=== PATIENT | male | born 2000 | race Caucasian/White ===

== ENCOUNTER 2021-06-15 11:13 | Emergency (ER) | payer OTHER ==
[~2021-06-15] VITALS: Ht 185.4 cm; Wt 95.5 kg
--- NOTE | 2021-06-15 12:04 | REP ---
INDICATION: CP. COMPARISON: None. TECHNIQUE: Upright PA and lateral chest images were obtained. FINDINGS: The lungs are clear. The heart borders, mediastinum and pulmonary vascular pattern are normal. The upper abdominal bowel gas pattern is normal. There are no bony abnormalities of the chest. IMPRESSION: No evidence of acute cardiopulmonary pathology. <Electronically signed by Mina Dickey > 06/15/21 1200
[2021-06-15 12:46] LABS: BASO # 0.1 10^3/uL (0.0-0.2); BASO % 1.1 % (0.0-1.0); EOS # 0.3 10^3/uL (0.0-0.5); EOS % 5.5 % (0.0-3.0); HEMATOCRIT 45.7 % (42.0-52.0); HEMOGLOBIN 15.8 g/dl (13.5-17.5); LYMPH # 1.5 10^3/uL (1.5-5.0); LYMPH % 26.6 % (24.0-44.0); MEAN CORPUSCULAR HEMOGLOBIN 29.8 pg (27.0-33.0); MEAN CORPUSCULAR HGB CONC 34.6 g/dl (32.0-36.5); MEAN CORPUSCULAR VOLUME 86.1 fl (80.0-96.0); MONO # 0.5 10^3/uL (0.0-0.8); MONO % 9.3 % (2.0-8.0); NEUTROPHILS # 3.2 10^3/uL (1.5-8.5); NEUTROPHILS % 57.1 % (36.0-66.0); PLATELET COUNT, AUTOMATED 227 10^3/uL (150-450); RED BLOOD COUNT 5.31 10^6/uL (4.30-6.10); WHITE BLOOD COUNT 5.6 10^3/uL (4.0-10.0)
[2021-06-15] MEDS ORDERED: ISOVUE-370 76% 100ML VIAL As Ordered ONE (12:56)
[2021-06-15 13:06] LABS: ALBUMIN 3.7 GM/DL (3.2-5.2); BILIRUBIN,DIRECT 0.2 MG/DL (0.0-0.2); BILIRUBIN,TOTAL 0.7 MG/DL (0.2-1.0); FREE T4 1.08 NG/DL (0.76-1.46); THYROID STIMULATING HORMONE 1.89 uIU/ML (0.358-3.740); TOTAL PROTEIN 6.4 GM/DL (6.4-8.2)
--- NOTE | 2021-06-15 13:46 | REP ---
INDICATION: chest pain. COMPARISON: None. TECHNIQUE: Imaging protocol: CT angiography of the chest with IV contrast. Contiguous 3 mm thick axial projection images were obtained through the chest. 2D sagittal and coronal reconstructions were performed. Radiation optimization: All CT scans at this facility use at least one of these dose optimization techniques: automated exposure control; mA and/or kV adjustment per patient size (includes targeted exams where dose is matched to clinical indication); or iterative reconstruction. Contrast: 75 cc Isovue 370 intravenous FINDINGS: Lower neck: The thyroid gland is normal. There is no supraclavicular lymphadenopathy. Mediastinum: No abnormal masses or lymphadenopathy. There is residual thymic tissue in anterior mediastinum. Heart/thoracic aorta/pulmonary arterial tree: The heart size is normal. There is no pericardial effusion. The thoracic aorta is normal. There is no thoracic aortic aneurysm or aortic dissection. There are no filling defects in the pulmonary arterial tree. Upper abdomen: Normal. Thoracic esophagus: Normal. Chest wall and axilla: There is bilateral gynecomastia. There is no axillary lymphadenopathy. There are no significant bony abnormalities of the chest. Lung parenchyma: The lungs are clear. There are no pulmonary nodules or masses. There is no significant interstitial or alveolar lung disease. There are no pleural effusions. IMPRESSION: Normal CT angiography of the chest in a 20-year-old. There is noted bilateral gynecomastia. <Electronically signed by Mina Dickey > 06/15/21 [id number]
[2021-06-15 14:14] VITALS: BP 119/56
--- NOTE | 2021-06-15 20:04 | ECGEPIP ---
[facility] - ED Test Date: 2021-06-15 Pat Name: SUBHASH JEFF Department: Room: - Gender: Male Gas Manager: SHEREEN : 2000 Requested By: Jeimy Tejeda Order Number: [id number] Reading MD: Jeimy Tejeda Measurements Intervals Jerome Rate: 68 P: 27 NE: 164 QRS: 57 QRSD: 94 T: 32 QT: 374 QTc: 397 Interpretive Statements Normal sinus rhythm No prior Electronically Signed on 06-15-2021 20:04:15 EDT by Jeimy Tejeda
== END 2021-06-15 14:23 | disposition home or self-care (01) ==
LOC: M ED 11:13
DX: R07.9 Chest pain, unspecified (principal); R00.2 Palpitations; Z86.16 Personal history of COVID-19
CPT/HCPCS: 36415; 71046; 71275; 80047; 80076; 83690; 84439; 84443; 84484; 85025; 93005; 93041; 94760; 99284; Q9967